=== PATIENT | female | born 1945 | race Two or more races ===

== ENCOUNTER 2017-03-07 21:01 | Inpatient (IN) | payer MEDICARE, MEDICAID ==
[~2017-03-07] VITALS: Ht 162.6 cm; Wt 54.9 kg
--- NOTE | 2017-03-07 21:10 | NUR ---
PATIENT C/O LOWER ABDOMINAL PAIN,BACK PAIN AND BILATERAL EXTREMITY PAIN X3 DAYS BUT WORST IN THE LAST 2 DAYS. PT IS ALERT,ORIENTED X 4, NO RESP DISTRESS NOTED OR REPORTED UPON ASSESSMENT... UZBEK SPEAKING ONLY, AT BEDSIDE...
[2017-03-07] MEDS ORDERED: ASPI-605 PO (21:24)
[2017-03-07] MEDS ORDERED: SIMV10TA6 PO (21:24)
[2017-03-07] MEDS ORDERED: TRINTELLIX PO (21:24)
[2017-03-07] MEDS ORDERED: DEXL60CA3 PO (21:24)
[2017-03-07] MEDS ORDERED: DICY10CA13 PO (21:24)
[2017-03-07] MEDS ORDERED: SITA100T PO (21:24)
[2017-03-07] MEDS ORDERED: ACETAMINOPHEN ES 500 MG TABLET PO ONE (21:45)
[2017-03-07] MEDS ORDERED: ACETAMINOPHEN ES 500 MG TABLET ONE (22:02)
[2017-03-07 22:06] LABS: BASOPHILS % (AUTO) 0.4 % (0.0-2.0); EOSINOPHILS # (AUTO) 0.5 K/uL (0.0-0.7); HEMATOCRIT 42.9 % (37-47); HEMOGLOBIN 14.2 G/DL (12.0-16.0); LYMPHOCYTES # (AUTO) 2.5 K/UL (0.8-4.8); LYMPHOCYTES % (AUTO) 23.2 % (20.5-51.5); MEAN CORPUSCULAR HEMOGLOBIN 30.3 UUG (27.0-31.0); MEAN CORPUSCULAR HGB CONC 33 g/dL (32.0-37.0); MEAN CORPUSCULAR VOLUME 91.4 FL (81.0-99.0); MONOCYTES # (AUTO) 0.7 K/UL (0.1-1.30); MONOCYTES % (AUTO) 6.5 % (0.0-11.0); NEUTROPHILS # (AUTO) 7.1 K/UL (1.8-8.9); NEUTROPHILS % (AUTO) 64.9 % (38.5-71.5); PLATELET COUNT (AUTO) 258 K/UL (150-450); RED BLOOD CELL COUNT(AUTO) 4.69 MIL/UL (4.2-5.4); WHITE BLOOD COUNT (AUTO) 10.8 K/UL (4.0-11.2)
[2017-03-07 22:13] LABS: CARBON DIOXIDE 30 mmol/L (21-32); CHLORIDE 103 mmol/L (98-107); CREATININE 0.8 mg/dL (0.6-1.3); GLUCOSE 103 mg/dL (74-106); POTASSIUM 4.8 mmol/L (3.5-5.1); UREA NITROGEN, BLOOD 20 mg/dL (7-18)
[2017-03-07 22:18] LABS: ALANINE AMINOTRANSFERASE 16 U/L (14-59); ALKALINE PHOSPHATASE 71 U/L (50-136); ASPARTATE AMINOTRANSFERASE 15 U/L (15-37); BILIRUBIN,DIRECT 0.1 mg/dL (0.0-0.2); BILIRUBIN,TOTAL 0.5 mg/dL (0.2-1.0); TOTAL PROTEIN, SERUM 8.2 g/dL (6.4-8.2)
[2017-03-08] MEDS ORDERED: HYDROCODONE/APAP 5-325MG TABLET PO ONE (00:15)
--- NOTE | 2017-03-08 00:15 | NUR ---
PER ER CONTACTED [facility], BROOKLYN CHAPIN ON LINE FOR PETER CANSECO...
[2017-03-08] MEDS ORDERED: HYDROCODONE/APAP 5-325MG TABLET ONE (00:27)
[2017-03-08] MEDS ORDERED: Z GUARD REMEDY PASTE 57 GM TUBE TOP PRN (00:30)
[2017-03-08] MEDS ORDERED: HYDROCODONE/APAP 5-325MG TABLET PO PRN (00:30)
[2017-03-08] MEDS ORDERED: ACETAMINOPHEN 325 MG TABLET PO PRN (00:30)
[2017-03-08] MEDS ORDERED: ONDANSETRON 4 MG/2 ML VIAL IV PRN (00:30)
[2017-03-08] MEDS ORDERED: HYDROCODONE/APAP 10-325 MG TABLET PO PRN (00:30)
[2017-03-08] MEDS ORDERED: DICYCLOMINE HCL 10 MG CAPSULE PO PRN (00:30)
[2017-03-08] MEDS ORDERED: MAGNESIUM HYDROXIDE 30 ML LIQUID UDC PO PRN (00:30)
--- NOTE | 2017-03-08 00:49 | NUR ---
CONTACTED TELE, SPOKE WITH ABDIAS CAZARES 215
--- NOTE | 2017-03-08 01:07 | NUR ---
Pt. admitted to [facility] , under care of Dr. BROOKLYN CHAPIN Belongs List completed
--- NOTE | 2017-03-08 01:20 | NUR ---
RECEIVED PATIENT VIA WHEELCHAIR. PT IS ALERT, IN NO ACUTE DISTRESS. ADMITTED TO TELE UNDER THE CARE OF DR. CHAPIN. DX: ABDOMINAL PAIN. ADMISSION PROCESS AND CARE PLAN INITIATED, BELONGING LIST ACCOUNTED AND ACKNOWLEDGED BY PT. MD ORDERS DONE AND AVAILABLE IN THE SYSTEM. SAFETY MEASURES IN PLACE, CALL LIGHT WITHIN REACH, BED ALARM ON. WILL CONTINUE TO MONITOR. Addendum: 03/08/17 at 0657 by ANNA BENITES RN CORRECTION: ADMITTING DIAGNOSIS IS SYNCOPE. PLS DISREGARD ABDOMINAL PAIN.
[2017-03-08 01:25] VITALS: BP 118/59
--- NOTE | 2017-03-08 02:00 | NUR ---
PATIENT'S HOME MEDICATION LISTED AND PLACED IN THE ENVELOPE FOR DELIVERY TO PHARMACY, ACKNOWLEDGED BY PT.
[2017-03-08 04:00] VITALS: BP 96/48
[2017-03-08] MEDS: IV NS 1000 ML 1,000 ML IV PRN ×2 (06:40→20:04)
[2017-03-08 07:32] LABS: MAGNESIUM 2.2 mg/dL (1.8-2.4); PHOSPHOROUS 3.6 mg/dL (2.5-4.9)
[2017-03-08] MEDS: PANTOPRAZOLE SODIUM 40 MG TABLET.DR PO SCH (08:11)
[2017-03-08] MEDS: ASPIRIN EC 81 MG TABLET.DR PO SCH (08:21)
[2017-03-08] MEDS: LINAGLIPTIN 5 MG TABLET PO SCH (08:22)
[2017-03-08] MEDS ORDERED: SITAGLIPTIN PHOSPHATE 50 MG TABLET PO SCH (09:00)
--- NOTE | 2017-03-08 09:00 | NUR ---
AWAKE ALERT AND ORIENTED WITH IVF IN PROGRESS ORDERED WITH NO S/S OF INFILTERATION ON SITE.ASSISTED TO THE BATHROOM VOIDING AMBULATORY WITH SLOW STEADY GAIT.MADE COMFORTABLE WITH NO DISTRESS AT THIS TIME.
[2017-03-08 11:06] VITALS: BP 106/56
[2017-03-08 12:26] VITALS: BP_SYST 106; BP_SYST 119; BP_DIAS 58; BP_DIAS 59; BP_DIAS 64
[2017-03-08 13:33] LABS: *BILIRUBIN,URIN NEGATIVE (NEGATIVE); *BLOOD, URINE Trace-intact (NEGATIVE); *CLARITY,URINE CLEAR (CLEAR); *COLOR,URINE LIGHT YELLOW (YELLOW); *KETONES,URINE NEGATIVE (NEGATIVE); *PROTEIN,URINE NEGATIVE (NEGATIVE); *UROBILINOGEN,URINE 0.2 E.U./dl (NORMAL); LEUKOCYTE ESTERASE ,URINE TRACE (NEGATIVE); NITRITE, URINE NEGATIVE (NEGATIVE); UGLUCOSE NEGATIVE (NEGATIVE)
[2017-03-08 13:41] LABS: BACTERIA,URINE FEW /HPF (NONE SEEN); SQUAMOUS EPITHELIAL CELL,UR FEW /HPF (NONE SEEN)
--- NOTE | 2017-03-08 14:19 | NUR ---
PATIENT STILL FEELING WEAK ESPECIALLY DURING ACTIVITY. ORTHOSTATIC VS DONE RESULTS WITHIN NORMAL LIMITS. US SENT TO LAB, RESULT SHOWED HIGH BACTERIA PER LAB.
[2017-03-08 15:17] VITALS: BP 102/51
[2017-03-08] MEDS ORDERED: FLEET ENEMA 133 ML BOTTLE RC PRN (16:00)
[2017-03-08] MEDS ORDERED: MAGNESIUM CITRATE 296 ML BOTTLE PO ONE (16:00)
[2017-03-08] MEDS ORDERED: LACTULOSE 20 G/30 ML LIQUID UDC PO ONE (16:00)
--- NOTE | 2017-03-08 16:43 | NUR ---
COMPLAINT OF CONSTIPATION, GIVEN LACTULOSE ORDERED. STILL WITH RIGHT HIP PAIN 8/10 AT THIS TIME, GIVEN NORCO ORDERED. WILL CONT TO MONITOR.
--- NOTE | 2017-03-08 18:31 | NUR ---
PATIENT IS ABLE TO HAVE BOWEL MOVEMENT AFTER DOSES OF LAXATIVE ORDERED. OTHERWISE HIP PAIN IS STILL UNRESOLVED. ADVISED TO CHANGE POSITION/TURNING IN BED TO HELP ALLEVIATE THE PAIN. OTHERWISE NO OTHER COMPLAINT.
[2017-03-08 20:00] VITALS: BP 109/62
[2017-03-08] MEDS ORDERED: SENNOSIDES 1 TABLET PO SCH (21:00)
[2017-03-08] MEDS ORDERED: SIMVASTATIN 10 MG TABLET PO SCH (21:00)
--- NOTE | 2017-03-08 23:00 | NUR ---
Assisted to the bathroom PRN. Patient had large soft BM x3, no further complaints. Sinus rhythm on the monitor.
[2017-03-09] VITALS: BP 104/55
[2017-03-09 04:00] VITALS: BP 114/54
[2017-03-09 06:54] LABS: BASOPHILS % (AUTO) 0.7 % (0.0-2.0); EOSINOPHILS # (AUTO) 0.7 K/uL (0.0-0.7); EOSINOPHILS % (AUTO) 10.2 % (0.0-7.0); HEMOGLOBIN 12.9 G/DL (12.0-16.0); LYMPHOCYTES # (AUTO) 2.3 K/UL (0.8-4.8); MEAN CORPUSCULAR HEMOGLOBIN 31.3 UUG (27.0-31.0); MEAN CORPUSCULAR HGB CONC 34 g/dL (32.0-37.0); MONOCYTES # (AUTO) 0.5 K/UL (0.1-1.30); MONOCYTES % (AUTO) 7.1 % (0.0-11.0); NEUTROPHILS # (AUTO) 3.1 K/UL (1.8-8.9); PLATELET COUNT (AUTO) 239 K/UL (150-450)
--- NOTE | 2017-03-09 07:00 | NUR ---
Fairly rested but constipation resolved. IVF maintained. No acute resp. distress.
[2017-03-09 07:02] LABS: CARBON DIOXIDE 29 mmol/L (21-32); CHLORIDE 107 mmol/L (98-107); CREATININE 0.7 mg/dL (0.6-1.3); GLUCOSE 96 mg/dL (74-106); POTASSIUM 3.8 mmol/L (3.5-5.1); UREA NITROGEN, BLOOD 11 mg/dL (7-18)
[2017-03-09] MEDS: PANTOPRAZOLE SODIUM 40 MG TABLET.DR PO SCH (07:02)
[2017-03-09 07:14] LABS: WHITE BLOOD COUNT (AUTO) 6.6 K/UL (4.0-11.2)
[2017-03-09 07:15] LABS: HEMATOCRIT 37.8 % (37-47); RED BLOOD CELL COUNT(AUTO) 4.11 MIL/UL (4.2-5.4)
[2017-03-09] MEDS: LINAGLIPTIN 5 MG TABLET PO SCH (08:14)
[2017-03-09] MEDS: ASPIRIN EC 81 MG TABLET.DR PO SCH (08:14)
[2017-03-09] MEDS: IV NS 1000 ML 1,000 ML IV PRN (08:59)
[2017-03-09 11:47] VITALS: BP 106/63
[2017-03-09] MEDS ORDERED: SENN-18 PO (12:35)
[2017-03-09] MEDS ORDERED: LACT10SO PO (12:35)
[2017-03-09] MEDS ORDERED: POLY17PO4 PO (12:35)
--- NOTE | 2017-03-09 15:45 | NUR ---
DISCHARGE NOTE: NO S/S OF RESPIRATORY DISTRESS NOTED. NO DIZZINESS/SYNCIPE NOTED/REPORTED. NO S/S OF BLEEDING NOTED. IV/WRISTBAND IS REMOVED. ALL SAFETY NEEDS ARE MET. 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 NO PAIN REPORTED.
[2017-03-09 15:58] VITALS: BP 113/58
== END 2017-03-09 16:30 | disposition home or self-care (01) | DRG 73 ==
LOC: ER 21:04 → TELE 03-08 01:04
PROVIDERS: ADMIT Nurse Practitioner Acute Care; ATTEND Nurse Practitioner Acute Care
DX: G90.8 Other disorders of autonomic nervous system (principal); N17.0 Acute kidney failure with tubular necrosis; E11.9 Type 2 diabetes mellitus without complications; E78.5 Hyperlipidemia, unspecified; N39.0 Urinary tract infection, site not specified; B95.1 Streptococcus, group B, as the cause of diseases classified elsewhere; K21.9 Gastro-esophageal reflux disease without esophagitis; Z79.82 Long term (current) use of aspirin; Z90.710 Acquired absence of both cervix and uterus; Z79.899 Other long term (current) drug therapy; K59.00 Constipation, unspecified; I25.10 Atherosclerotic heart disease of native coronary artery without angina pectoris
CPT/HCPCS: 36415; 70030-TC; 70450; 71010; 72125; 83735; 84100; 85025; 85730; 87077; 87086; 93005; 93307; A4663; J7030